=== PATIENT | male | born 1990 | race Caucasian/White ===

== ENCOUNTER 2022-11-24 15:40 | Emergency (ER) | payer OTHER, SELFPAY ==
--- NOTE | ~2022-11-24 | XR_ITS ---
EXAMINATION: XR hip LT 2V w AP pelvis INDICATION: Left hip and groin pain TECHNIQUE: AP view the pelvis and two views of the left hip are obtained. COMPARISON: None available FINDINGS: Bone alignment is normal. There is no fracture. Soft tissues are unremarkable. IMPRESSION: 1. No acute osseous abnormality. Reviewed, dictated and finalized at location B.
[2022-11-24 15:52] VITALS: BP 138/90; PULSE 70; RESP 18; TEMP 36.4; O2SAT 98
--- NOTE | 2022-11-24 16:24 | ED.LOWEXIN ---
HPI - Extremity Injury (Lower) General Chief Complaint: Extremity Injury, Lower Stated Complaint: Left hip pain Time Seen by Provider: 11/24/22 16:10 History of Present Illness HPI Narrative: 32-year-old male reports for evaluation for left hip pain x1 day. Patient states he was walking on his patio when he started having a sudden onset of left hip pain that radiates to the front of his leg down to his knee. He denies injury or trauma. He states he has never had anything like this before. He was describes the pain as dull and sharp . He denies paresthesias, back pain, neck pain, saddle anesthesia, lower extremity weakness, history of cancer, use of steroids or immunosuppressants, use of IV drugs, history of mechanical heart valve, fever. Related Data Allergies Allergy/AdvReac Type Severity Reaction Status Date / Time No Known Allergies Allergy Verified 11/24/22 16:10 Review of Systems Review of Systems: CONSTITUTIONAL: Denies fever, chills EYES: Denies visual changes, redness, or discharge. ENT: Denies rhinorrhea, congestion, sore throat, or otalgia. CARDIOVASCULAR: Denies chest pain, palpitations, or edema. RESPIRATORY: Denies cough or dyspnea. GASTROINTESTINAL: Denies abdominal pain, nausea, vomiting, or diarrhea. GENITOURINARY: Denies dysuria or hematuria. SKIN: Denies rash or itching. MUSCULOSKELETAL: See HPI NEUROLOGIC: Denies headache, numbness, dizziness, or weakness. PSYCHIATRIC: Denies anxiety or depression. Exam Narrative: GENERAL: Well-appearing, in no acute distress. Patient resting comfortably in exam bed. He is pleasant and conversational. HEAD: Normocephalic NECK: Supple. CHEST: No respiratory distress. Clear to auscultation, no adventitious breath sounds. HEART: Regular rate and rhythm. No murmur heard. Normal peripheral pulses. ABDOMEN: Soft, nontender, normal active bowel sounds. BACK: No midline cervical, thoracic or lumbar spinous tenderness, step-offs or deformities. No tenderness to the gluteal or piriformis muscles. EXTREMITIES: Left hip with tenderness over the ASIS and anterior left hip. Full active and passive range of motion of hip. Negative SLR bilaterally. Strength 5/5 in BLE. Sensation intact throughout. Patient ambulatory with a steady gait. No overlying skin changes, warmth or erythema to left hip. SKIN: Warm, dry, no rash. NEURO: No focal deficits. Alert and oriented x3. PSYCH: Normal mood and affect. Course Vital Signs Vital signs: Vital Signs Temperature 97.6 F 11/24/22 15:52 Pulse Rate 70 11/24/22 15:52 Respiratory Rate 18 11/24/22 15:52 Blood Pressure 138/90 11/24/22 15:52 Pulse Oximetry 98 11/24/22 15:52 Oxygen Delivery Room Air 11/24/22 15:52 Temperature 97.6 F 11/24/22 15:52 Pulse Rate 70 11/24/22 15:52 Respiratory Rate 18 11/24/22 15:52 Blood Pressure 138/90 11/24/22 15:52 Pulse Oximetry 98 11/24/22 15:52 Oxygen Delivery Room Air 11/24/22 15:52 MDM - Extremity Injury (Lower) MDM Narrative Medical decision making narrative: 32-year-old male reports for evaluation for left hip pain x1 day. See HPI for further history. Vital stable, he is afebrile. Exam significant for tenderness to the left hip and left ASIS. He is neurovascularly intact with good strength and is ambulatory. Full range of motion of hip, no warmth or erythema, septic and less likely. No red flag signs. X-ray of the hip showed no acute osseous neurology. Patient received ibuprofen and Flexeril with improvement in symptoms. He is ambulatory without difficulty. Plan to discharge him home with ibuprofen and Flexeril have him closely follow-up with his PCP. Strict ED return precautions discussed. He is agreeable to plan verbalized understanding. Discharged in stable condition. Medical Records Attestation: I reviewed the patient's medical records. Imaging Data Radiologist's impression: Impressions Hip/Pelvis X-Ray 11/24/22 16:44 IMP
[2022-11-24] MEDS: IBUPROFEN 600 MG TABLET PO (16:37)
[2022-11-24] MEDS: CYCLOBENZAPRINE HCL 10 MG TABLET PO (16:37)
== END 2022-11-24 18:02 | disposition home or self-care (01) ==
PROVIDERS: Emergency Provider Physician Assistant
DX: M25.552 Pain in left hip (principal)
CPT/HCPCS: 73502; 99283; A9270